=== PATIENT | male | born 1990 | race Two or more races ===

== ENCOUNTER 2025-02-21 05:34 | Day surgery (SDC) | payer OTHER ==
[~2025-02-21 05:34] MED LIST: SYNTHROID100 MCG PO
[2025-02-21] MEDS ORDERED: BUPIVACAINE HCL 30 ML VIAL IJ ONE (08:15)
[2025-02-21] MEDS ORDERED: CEFAZOLIN SODIUM 1,000 MG VIAL IV ONE (08:15)
[2025-02-21] MEDS ORDERED: KETO10TA2 PO (08:36)
[2025-02-21] MEDS ORDERED: MIRALAX17 GM PO (08:36)
[2025-02-21] MEDS ORDERED: TYLENOL ARTHRI650 MG PO (08:36)
[2025-02-21] MEDS ORDERED: TRAMADOL HCL50 MG PO (08:36)
[2025-02-21] MEDS ORDERED: MORPHINE SULFATE 4 MG/ML VIAL IV ONE (10:05)
== END 2025-02-21 11:05 | disposition home or self-care (01) ==
LOC: CIR.AMB 05:34
PROVIDERS: ATTEND Surgery
DX: K42.0 Umbilical hernia with obstruction, without gangrene (principal)
CPT/HCPCS: 49592; C1781